=== PATIENT | male | born 1975 | race Caucasian/White ===

== ENCOUNTER 2018-01-09 15:54 | Emergency (ER) | payer MEDICAID, OTHER ==
[~2018-01-09] VITALS: Ht 175.3 cm; Wt 81.6 kg
[2018-01-09 16:16] VITALS: BP 118/75
--- NOTE | 2018-01-09 16:58 | Emergency Room Report ---
History of Present Illness General Chief Complaint: Alcohol Intoxication Source: Patient Present Illness HPI 42-year-old male patient presents to ER brought in by ambulance for EtOH intoxication. Patient was found sleeping with multiple bottles around him. Patient reports that he did not fall or hit his head. Reports recent injury and had sutures sutures placed in his forehead, requesting sutures be removed. denies loss consciousness or vomiting. Denies vision changes. Denies fever, chest pain, shortness of breath. Denies history of seizure disorder, states he is not taking any medications currently. Denies drug use. Denies suicidal or homicidal ideation. Patient reports he is homeless. Allergies: Coded Allergies: No Known Allergies (Unverified , 01/09/18) Patient History Past Medical History: see triage record Reviewed Nursing Documentation: PMH: Agreed; PSxH: Agreed Nursing Documentation-PMH Past Medical History: No History, Except For Hx Seizures: Yes Review of Systems All Other Systems: negative except mentioned in HPI Physical Exam Vital Signs Date Time Temp Pulse Resp B/P (MAP) Pulse Ox O2 Delivery O2 Flow Rate FiO2 01/09/18 15:48 98.4 110 20 118/75 97 Room Air 98.4 Sp02 EP Interpretation: reviewed, normal General Appearance: well appearing, no apparent distress, alert, GCS 15, non- toxic, other - dirty clothes, dirt on skin Head: normocephalic, atraumatic, other - negative Osorio sign, negative for current denies Eyes: bilateral eye normal inspection, bilateral eye PERRL ENT: hearing grossly normal, normal pharynx, no angioedema, normal voice, uvula midline, moist mucus membranes Neck: full range of motion Respiratory: lungs clear, normal breath sounds, no rhonchi, no respiratory distress, no accessory muscle use, no wheezing, speaking full sentences Cardiovascular #1: regular rate, rhythm, no edema Genitourinary: no CVA tenderness Musculoskeletal: back normal, digits/nails normal, gait/station normal, normal range of motion, non-tender Neurologic: alert, oriented x3, responsive, motor strength/tone normal, sensory intact Skin: laceration - forehead: healing, no signs of infection Medical Decision Making PA Attestation Dr. Arthur is my supervising Physician whom patient management has been discussed with. Diagnostic Impression: Primary Impression: Acute alcoholic intoxication Additional Impression: Encounter for removal of sutures ER Course Pt presents to ED c/o EtOH intoxication. DDX considered but are not limited to laceration, abrasion, contusion, cellulitis, ICH, skull fracture. Ordered CT of head to rule out acute pathology. VITAL SIGNS are WNL, patient is afebrile Ordered CT head, lidocaine, TDap. ED INTERVENTIONS: Sutures remove from forehead. no signs of infection, mild hyperpigmentation of skin likely due to trauma, no ecchymosis, no erythema or edema, no active drainage, no dried pus or blood. Instructed patient to apply cool compresses to area, keep area clean and dry, apply sunblock and Neosporin to help prevent scarring, does not require abx at this time. Bacitracin applied to wound. CT head negative for acute disease. Patient allowed to rest to sober up. Patient resting comfortably, in no acute distress, nontoxic appearing. Provided patient with food in ER. Provided patient with contact information for free and low cost health care clinics to followup with. Provided patient with information regarding shelters to report to for housing. Patient OK for discharge, ambulating without difficulty, no focal neuro deficits. Patient talking without difficulty. Denies acute pain. DISCHARGE: At this time pt is stable for d/c to home. Patient resting comfortably, in no acute distress, nontoxic appearing, talking without difficulty. Will provide with patient care instructions and any necessary prescriptions. Patient to take medication as instructed. Care plan and follow-up instructions provided. Patient questions asked and answered. Patient reports understanding and agreement to treatment plan. Patient instructed to followup with PCP to discuss further treatment plan. ER precautions given. Patient instructed to return to ER immediately for any new or worsening of symptoms. - Please note that this Emergency Department Report was dictated using [employer] yard supervisor technology software, occasionally this can lead to erroneous entry secondary to interpretation by the dictation equipment. CT/MRI/US Diagnostic Results CT/MRI/US Diagnostic Results : Imaging Test Ordered: CT head Impression no intracranial hemorrhage or skull fracture extracranial soft tissue swelling scalp darling Last Vital Signs Date Time Temp Pulse Resp B/P (MAP) Pulse Ox O2 Delivery O2 Flow Rate FiO2 01/09/18 16:16 98.4 20 118/75 97 Room Air 98.4 01/09/18 15:48 110 Disposition: HOME, SELF-CARE Condition: Stable Patient Instructions: Alcohol Intoxication, [id number], Sutured Wound Care, [id number] Additional Instructions: Followup with primary care provider in 3 -5 days. provided with information to healthcare clinics and shelters. Take medications as directed. Patient questions asked and answered. ER precautions given, patient instructed to return to ER immediately for any new or worsening of symptoms. Jacob Kelsey Jan 09, 2018 16:58
[2018-01-09] MEDS ORDERED: Bacitracin Oint UD TOPIC ONE (17:00)
[2018-01-09 19:18] VITALS: BP 118/75
--- NOTE | 2018-01-10 09:58 | Diagnostic Imaging Report ---
Indication: Reason For Exam: PAIN Technique: Continuous helical CT scanning of the head was performed without intravenous contrast material. Axial and coronal 5 mm sections were generated. Radiation dose was minimized using automated exposure control Dose: Total Dose Length Product - DLP 1336.[address] Dose Index - CTDIvol(s) 70.38 mGy. Comparison: 06/09/2009 Findings: There is interim slight increase caliber of the ventricles and extra axial CSF spaces. No acute intracranial hemorrhage or edema, mass effect, nor midline shift. There is a left supraorbital scalp contusion. Visualized orbits and sinuses are unremarkable. The calvarium is intact. Skin darling are seen in the left temporal scalp Impression: Negative for acute intracranial bleed or mass effect Positive for left supraorbital and left temporal scalp soft tissue injury This agrees with the preliminary interpretation provided overnight by [facility]. The CT scanner at [facility] is accredited by the [employer] and the scans are performed using protocols designed to limit radiation exposure to as low as reasonably achievable to attain images of sufficient resolution adequate for diagnostic evaluation.
== END 2018-01-09 19:19 | disposition home or self-care (01) ==
LOC: EDBD 15:54 → EMR 17:17
DX: F10.129 Alcohol abuse with intoxication, unspecified (principal); Z48.02 Encounter for removal of sutures; Z59.0 Homelessness; S00.03XA Contusion of scalp, initial encounter; X58.XXXA Exposure to other specified factors, initial encounter; Y93.9 Activity, unspecified; Y92.9 Unspecified place or not applicable
CPT/HCPCS: 70450; 99284

== ENCOUNTER 2019-06-15 15:49 | Emergency (ER) | payer OTHER ==
[~2019-06-15] VITALS: Ht 172.7 cm; Wt 77.1 kg
[2019-06-15 15:57] VITALS: BP 122/68
--- NOTE | 2019-06-15 15:57 | NUR ---
ED Nurse Note: Patient brought in by RA due to ETOH from gas station. As per patient, he took unknown amount of vodka. Patient is alert and oriented x3, verbally responsive. Calm and cooperative. No SOB. Breathing even and unlabored. VSS.
--- NOTE | 2019-06-15 16:05 | NUR ---
ED Nurse Note: Food/ snacks provided.
--- NOTE | 2019-06-15 17:43 | Emergency Room Report ---
History of Present Illness General Chief Complaint: Alcohol Intoxication Source: Patient, Medical Record, EMS Present Illness HPI 44-year-old male presents ED for evaluation. Brought in by EMS from Street. Noted to be drinking alcohol at a gas station today. Admits to drinking vodka. Patient states he is hungry. Denies any abdominal pain. Denies any nausea or vomiting. Denies any pain. Denies any drug use. No other aggravating relieving factors. Denies any other associated symptoms Allergies: Coded Allergies: No Known Allergies (Unverified , 01/09/18) Patient History Past Medical History: seizures Past Surgical History: none Pertinent Family History: none Social History: Reports: alcohol use; Denies: smoking, drug use Immunizations: UTD Reviewed Nursing Documentation: PMH: Agreed; PSxH: Agreed Nursing Documentation-PMH Hx Seizures: Yes Review of Systems All Other Systems: negative except mentioned in HPI Physical Exam Vital Signs Date Time Temp Pulse Resp B/P (MAP) Pulse Ox O2 Delivery O2 Flow Rate FiO2 06/15/19 15:49 98.1 86 16 122/68 (86) 98 Room Air Sp02 EP Interpretation: reviewed, normal General Appearance: no apparent distress, alert, GCS 15, non-toxic Head: normocephalic, atraumatic Eyes: bilateral eye normal inspection, bilateral eye PERRL ENT: hearing grossly normal, normal pharynx, no angioedema, normal voice Neck: full range of motion, supple/symm/no masses Respiratory: chest non-tender, lungs clear, normal breath sounds, speaking full sentences Cardiovascular #1: regular rate, rhythm, no edema Cardiovascular #2: 2+ carotid (R), 2+ carotid (L), 2+ radial (R), 2+ radial (L) , 2+ dorsalis pedis (R), 2+ dorsalis pedis (L) Gastrointestinal: normal bowel sounds, non tender, soft, non-distended, no guarding, no rebound Rectal: deferred Genitourinary: normal inspection, no CVA tenderness Musculoskeletal: back normal, gait/station normal, normal range of motion, non- tender Neurologic: alert, oriented x3, responsive, motor strength/tone normal, sensory intact, speech normal Psychiatric: judgement/insight normal, memory normal, mood/affect normal, no suicidal/homicidal ideation Reflexes: 3+ bicep (R), 3+ bicep (L), 3+ tricep (R), 3+ tricep (L), 3+ knee (R) , 3+ knee (L) Lymphatic: no adenopathy Medical Decision Making Homeless Attestation I, The treating physician Dr. Adair, have assessed and agrees that patient is medically stable for discharge to an outpatient disposition. Diagnostic Impression: Primary Impression: Acute alcoholic intoxication Qualified Codes: F10.929 - Alcohol use, unspecified with intoxication, unspecified ER Course Hospital Course 44-year-old male presents to ED status post EtOH intoxication. Clinical course Patient placed on stretcher. Given that patient is able to provide an adequate history, I see no need to check blood work or place an IV. Patient allowed to sleep. provided with food. My assessment shows no evidence of SI/HI requiring psychiatric evaluation. Patient allowed to rest in now awake alert oriented x3. ambulating without difficulty. patient will be discharged. Homeless checklist completed. Diagnosis - ETOH intoxication stable and discharged to home. Followup with PMD. Return to ED if symptoms recur or worsen Last Vital Signs Date Time Temp Pulse Resp B/P (MAP) Pulse Ox O2 Delivery O2 Flow Rate FiO2 06/15/19 15:57 98.1 76 16 122/68 98 Room Air Status: improved Disposition: HOME, SELF-CARE Condition: Stable Referrals: [facility],REFERRING (PCP) Arnulfo Adair MD Jun 15, 2019 17:43
--- NOTE | 2019-06-15 19:13 | NUR ---
ED Nurse Note: report received from CHOCO Hernandez. Patient in bed, resting with eyes closed, appears to be sleeping at this time. No s/s of pain/discomfort. Will continue to monitor.
[2019-06-15 19:26] VITALS: BP 128/76
[2019-06-15 21:30] VITALS: BP 119/82
== END 2019-06-15 21:30 | disposition home or self-care (01) ==
LOC: EDBD 15:49 → EMR 16:10
DX: F10.929 Alcohol use, unspecified with intoxication, unspecified (principal); G40.909 Epilepsy, unspecified, not intractable, without status epilepticus
CPT/HCPCS: 99283